=== PATIENT | female | born 1975 | race Caucasian/White ===

== ENCOUNTER 2024-12-12 20:37 | Emergency (ER) | payer BC ==
[2024-12-12 21:37] LABS: HEMATOCRIT 33.5 % (34.3-46.0); MEAN CORPUSCULAR HEMOGLOBIN 25.8 pg (31.6-35.5); MEAN CORPUSCULAR HGB CONC 32.8 g/dL (31.6-35.5); MEAN CORPUSCULAR VOLUME 78.6 fL (81.4-99.0); PLATELET COUNT,PLT 216 K/uL (130-375); RED BLOOD CELL COUNT 4.26 M/uL (3.77-5.24); WHITE BLOOD CELL COUNT,WBC 7.6 K/uL (3.2-11.0)
[2024-12-12 21:53] LABS: ATYPICAL LYMPHOCYTES FEW; EOSINOPHILS ABSOLUTE MAN 0.08 K/uL (0.00-0.40); EOSINOPHILS PERCENT MAN 1 % (2-4); LYMPHOCYTES ABSOLUTE MAN 2.96 K/uL (0.8-3.3); LYMPHOCYTES PERCENT MAN 39 % (24-44); MONOCYTES ABSOLUTE MAN 0.76 K/uL (0.20-0.90); MONOCYTES PERCENT MAN 10 % (2-6); SEG NEUTROPHILS PERCENT MAN 50 % (36-66)
[2024-12-12 21:59] LABS: A/G RATIO 0.8 (1.2-2.2); ALANINE AMINOTRANSFERASE,ALT 38 U/L (12-78); ALBUMIN 3.1 g/dL (3.4-5.0); ALKALINE PHOSPHATASE 78 U/L (46-116); ANION GAP 13.2 mmol/L (5.0-14.0); ASPARTATE AMNIOTRANSFERASE,AST 20 U/L (15-37); BLOOD UREA NITROGEN,BUN 35 mg/dL (7-18); CALCIUM 10.1 mg/dL (8.5-10.1); CARBON DIOXIDE,CO2 27 mmol/L (21-32); CHLORIDE,CL 95 mmol/L (100-108); CREATININE 1.4 mg/dL (0.6-1.0); EST CRCL DRUG DOSING (CG) 47.27 mL/min; ESTIMATED GFR 46 mL/min (>60); GLUCOSE RANDOM 360 mg/dL (74-106); POTASSIUM,K 4.2 mmol/L (3.6-5.2); SODIUM,NA 131 mmol/L (140-148)
[2024-12-12 22:16] LABS: LYME AB IgG Negative (Negative); LYME AB IgM Positive (Negative)
[2024-12-15 15:44] LABS: B. BURGDORFERI IGG IMMUNOBLOT Negative (Negative); B. BURGDORFERI IGM IMMUNOBLOT Negative (Negative)
== END 2024-12-12 22:40 | disposition home or self-care (01) ==
LOC: JP.ED 20:37
DX: A69.20 Lyme disease, unspecified (principal); I10 Essential (primary) hypertension; E78.00 Pure hypercholesterolemia, unspecified; E11.9 Type 2 diabetes mellitus without complications; Z88.2 Allergy status to sulfonamides; Z79.4 Long term (current) use of insulin; Z79.899 Other long term (current) drug therapy; Z90.49 Acquired absence of other specified parts of digestive tract
CPT/HCPCS: 36415; 80053; 83605; 85025; 86140; 86617; 86618; 99283; 99284